=== PATIENT | male | born 2000 | race Caucasian/White ===

== ENCOUNTER 2024-06-29 20:03 | Emergency (ER) | payer MEDICAID ==
[~2024-06-29] VITALS: Ht 185.4 cm; Wt 91.0 kg
[2024-06-29 20:07] VITALS: O2SAT 95
[2024-06-29 21:35] LABS: HEMATOCRIT. 48.2 % (42.0-52.0); HEMOGLOBIN. 15.9 g/dL (14.0-18.0); MEAN CORPUSCULAR HEMOGLOBIN 31.4 pg (28.0-32.0); MEAN CORPUSCULAR HGB CONC 32.9 g/dL (31.0-37.0); MEAN CORPUSCULAR VOLUME 95.4 fL (80.0-94.0); MEAN PLATELET VOLUME 8.9 fl (7.4-10.4); PLATELET 241 x1000/uL (130-400); RED BLOOD CELL COUNT 5.05 mill/uL (4.7-6.1); RED CELL DISTRIBUTION WIDTH 13.5 % (11.6-14.6); WHITE BLOOD COUNT 15.8 x1000/uL (4.5-11.0)
[2024-06-29 21:49] LABS: CHLORIDE 105 mEq/L (98-107); DIFFERENTIAL COMMENT 1; POTASSIUM 4.4 mEq/L (3.5-5.1); SODIUM 141 mEq/L (136-145)
[2024-06-29 21:50] LABS: CALCIUM 9.2 mg/dL (8.7-10.4); CARBON DIOXIDE 26 mEq/L (21-32)
[2024-06-29 21:55] LABS: GLUCOSE 104 mg/dL (70-105); UREA NITROGEN BLOOD 7 mg/dL (9-23)
[2024-06-29 21:57] LABS: ALANINE AMINOTRANSFERASE 119 IU/L (10-49); ALBUMIN 4.1 g/dL (3.2-4.8); ASPARTATE AMINOTRANSFERASE 32 IU/L (<34); BILIRUBIN DIRECT 0.3 mg/dL (<=3.0); BILIRUBIN TOTAL 0.9 mg/dL (0.1-1.0); PROTEIN TOTAL 7.3 g/dL (6.0-8.3)
[2024-06-29 22:08] LABS: PLATELET ESTIMATE NORMAL
[2024-06-29 22:35] VITALS: BP 135/75; PULSE 76; RESP 16; TEMP 36.9; O2SAT 100
== END 2024-06-29 23:27 | disposition home or self-care (01) ==
LOC: ER 20:03
DX: F19.10 Other psychoactive substance abuse, uncomplicated (principal); Z79.899 Other long term (current) drug therapy
CPT/HCPCS: 36415; 80048; 80076; 85025; 99283